=== PATIENT | male | born 1965 | race Caucasian/White ===

== ENCOUNTER → 2017-10-12 | Day surgery (SDC) | payer OTHER | END | disposition home or self-care (01) | LOC: ADM 10-04 07:15 → CIR.AMB 06:04 | DX: S46.321A Laceration of muscle, fascia and tendon of triceps, right arm, initial encounter (principal) ==

== ENCOUNTER 2023-07-03 17:31 | Emergency (ER) | payer OTHER ==
[~2023-07-03] VITALS: Ht 177.8 cm; Wt 78.9 kg
[2023-07-03] MEDS ORDERED: DICLOFENAC-MIS1 EAC3 PO (21:17)
[2023-07-03] MEDS ORDERED: DICLOFENAC SODI75 MG PO (21:23)
[2023-07-03] MEDS ORDERED: VOLTAREN ARTHRI20 GM TOP (21:23)
== END 2023-07-03 21:42 | disposition home or self-care (01) ==
LOC: ER 17:32
DX: M25.561 Pain in right knee (principal); M17.12 Unilateral primary osteoarthritis, left knee